=== PATIENT | female | born 1990 | race Caucasian/White ===

== ENCOUNTER 2018-06-16 23:26 | Emergency (ER) | payer BC ==
[~2018-06-16] VITALS: Ht 157.5 cm; Wt 53.5 kg
[2018-06-16 23:33] VITALS: BP 100/78
== END 2018-06-17 01:02 | disposition home or self-care (01) ==
LOC: ER 23:33
DX: S61.011A Laceration without foreign body of right thumb without damage to nail, initial encounter (principal); Z87.440 Personal history of urinary (tract) infections; Z98.890 Other specified postprocedural states; W26.0XXA Contact with knife, initial encounter; Y93.G1 Activity, food preparation and clean up; Y92.89 Other specified places as the place of occurrence of the external cause; Y99.8 Other external cause status
CPT/HCPCS: 12001; 99283; A4606; A6402; Z7610